=== PATIENT | male | born 1960 | race Caucasian/White ===

== ENCOUNTER 2016-09-08 15:53 | Emergency (ER) | payer OTHER ==
--- NOTE | 2016-09-08 15:58 | ED Physician Chart ---
Chief Complaint/HPI - Patient Information Date Seen:: 09/08/16 Time Seen:: 15:57 Chief Complaint:: cough History of Present Illness:: 55-year-old male history of diabetes mellitus type 2, complains of acute, worsening, constant, worse at night, nonproductive, severe, cough for the past week and a half. Has associated sore throat and low-grade temperature. Allergies:: Allergies Allergy/AdvReac Type Severity Reaction Status Date / Time No Known Allergies Allergy Verified 02/21/16 14:11 Historian:: Patient Review:: Nurse's Note Reviewed Review of Systems - Review of Systems Other: Complete system review otherwise unremarkable except as noted in HPI. Past Medical History - Past Medical History Past Medical History: HTN, DM, Other (CK D stage III) Family History: None Social History: Non Smoker, No Alcohol, No Drug Use, Employed Surgical History: None Psychiatricy History: None Medication: Reviewed Family Medical History - Family Member Mother History Unknown: Yes Physical Exam - Physical Examination Other:: INITIAL VITAL SIGNS: Reviewed by me GENERAL: Alert and interactive. No acute distress HEAD: Head is normocephalic and atraumatic EYES: EOMI. . No scleral icterus. No conjunctival injection ENT: Moist mucous membranes. Posterior pharynx is erythematous. NECK: Supple. No masses. Full range of motion RESPIRATORY: No tachypnea. Prolonged expiratory phase bilaterally with slight expiratory wheeze. Rales, or rhonchi CV: Regular rate and rhythm. No murmurs, rubs, or gallops ABDOMEN: Soft, non-distended, non-tender. No guarding. No rebound. No masses. EXTREMITIES: No deformity. No cyanosis. No edema. SKIN: Warm and dry. No obvious rashes. NEUROLOGIC: Alert and oriented. Face is symmetric. Speech is normal. Moves all extremities equally. Motor and sensory distally intact. Labs/Radiology/EKG Results - Lab Results Results: Lab Results 09/08/16 09/08/16 Range/Units 16:20 16:20 WBC 6.3 (4.8-10.8) Th/cmm RBC 4.59 (4.30-5.70) Mil/cmm Hgb 13.7 (13.2-17.3) gm/dL Hct 40.6 (39.0-49.0) % MCV 88.4 (80-99) fl MCH 29.9 (26.0-30.0) pg MCHC Differential 33.8 (28.0-36.0) pg RDW 12.1 (11.5-20.0) % Plt Count 215 (150-400) Th/cmm MPV 8.4 fl Neutrophils % 67.7 (40.0-80.0) % Lymphocytes % 19.0 L (20.0-50.0) % Monocytes % 9.4 (2.0-10.0) % Eosinophils % 2.8 (0.0-5.0) % Basophils % 1.1 (0.0-2.0) % Sodium 134 L (136-145) mEq/L Potassium 4.7 (3.5-5.1) mEq/L Chloride 106 (98-107) mEq/L Carbon Dioxide 24.9 (21.0-31.0) mEq/L Anion Gap 7.8 (7.0-16.0) BUN 39 H (7-25) mg/dL Creatinine 2.3 H (0.7-1.3) mg/dL Est GFR ( Amer) 38.3 (>90) ml/min Est GFR (Non-Af Amer) 31.7 ml/min BUN/Creatinine Ratio 17.0 Glucose 147 H (70-105) mg/dL Calcium 8.6 (8.6-10.3) mg/dL - Radiology Results Results: Single AP VIEW Portable Chest X-ray was interpreted independently and contemporaneously by Nataliya Pena MD: No cardiomegaly Normal mediastinum No lung infiltrates No pneumothorax No soft tissue or bony abnormalities ED Septic Shock - . Is Septic Shock (SBP<90, OR Lactate>4 mmol\L) present?: No Reassessment (Disposition) - Reassessment Reassessment:: Chest x-ray unremarkable. Labs essentially unremarkable. Patient does have severe cough. Gave antitussive here in the ER. Also gave IM Decadron and Toradol. Patient received DuoNeb breathing treatment. Symptoms greatly improved. Has acute bronchitis. All lab results discussed with patient. Has known CK D stage III. Provided prescriptions for antibiotic given the patient' s age and comorbidities of diabetes. Also gave ibuprofen and antitussive. Follow up PCP 1-2 days. Gave return to ER precautions. Patient understands and agrees the plan. Reassessment Condition:: Improved - Diagnosis Diagnosis:: Acute bronchitis Diabetes mellitus type 2 Hypertension CK D stage III - Aftercare/Follow up Instructions Aftercare/Follow-Up Instructions:: Counseled pt regarding lab results/diagnosis & need follow up, Refer to Discharge Instructions Medication Prescribed:: Azithromycin Ibuprofen Promethazine with codeine antitussive - Patient Disposition Discharge/Transfer:: Home Time:: 16:22 Condition at Disposition:: Improved ED Discharge Plan - Patient Disposition Admit/Discharge/Transfer: PT DISCHARGED HOME Condition at Disposition: Improved Instructions: Bronchitis, [id number] Accepting Physician: Jh Brandt [Other] - 1-3 Days Forms: Work Release Form
[2016-09-08 16:02] VITALS: BP 146/80
[2016-09-08] MEDS ORDERED: Dexamethasone Sodium Phos 4 mg/mL Vial IM STA (16:08)
[2016-09-08] MEDS ORDERED: Codeine/Promethazine Susp 5 mL UDC PO STA (16:08)
[2016-09-08] MEDS ORDERED: Albuterol/Ipratropium Neb 3 ML AERS HHN ONE ×2 (16:08→16:19)
[2016-09-08] MEDS ORDERED: Dexamethasone Sodium Phos 10 mg/mL PF Vial ONE (16:13)
[2016-09-08] MEDS ORDERED: Codeine/Promethazine Susp 5 mL UDC ONE (16:13)
[2016-09-08 16:39] LABS: % BASOPHILS 1.1 % (0.0-2.0); % EOSINOPHILS 2.8 % (0.0-5.0); % MONOCYTES 9.4 % (2.0-10.0); % NEUTROPHILS 67.7 % (40.0-80.0); HEMATOCRIT 40.6 % (39.0-49.0); HEMOGLOBIN 13.7 gm/dL (13.2-17.3); MEAN CELL VOLUME 88.4 fl (80-99); MEAN CORPUSCULAR HEMOGLOBIN 29.9 pg (26.0-30.0); MEAN CORPUSCULAR HGB CONC 33.8 pg (28.0-36.0); MEAN PLATELET VOLUME 8.4 fl; NEUTROPHILE ABSOLUTE 4.2 Th/cmm (1.8-8.0); PLATELET COUNT 215 Th/cmm (150-400); RED BLOOD COUNT 4.59 Mil/cmm (4.30-5.70); RED CELL DISTRIBUTION WIDTH 12.1 % (11.5-20.0); WHITE BLOOD COUNT 6.3 Th/cmm (4.8-10.8)
[2016-09-08 16:56] LABS: ANION GAP 7.8 (7.0-16.0); CALCIUM SERUM 8.6 mg/dL (8.6-10.3); CARBON DIOXIDE 24.9 mEq/L (21.0-31.0); CREATININE - SERUM 2.3 mg/dL (0.7-1.3); POTASSIUM SERUM 4.7 mEq/L (3.5-5.1)
--- NOTE | 2016-09-09 09:11 | Diagnostic Imaging Report ---
CHEST X-RAY: AP view INDICATION: Cough COMPARISON: 02/21/2016 FINDINGS: Mild chronic changes are seen. No focal consolidation or effusions. Heart size is normal. Degenerative changes of the spine are noted. IMPRESSION: Mild chronic lung changes. No focal consolidation identified.
== END 2016-09-08 17:15 | disposition home or self-care (01) ==
LOC: ER 15:53
DX: J20.9 Acute bronchitis, unspecified (principal); E11.22 Type 2 diabetes mellitus with diabetic chronic kidney disease; I12.9 Hypertensive chronic kidney disease with stage 1 through stage 4 chronic kidney disease, or unspecified chronic kidney disease; N18.3 Chronic kidney disease, stage 3 (moderate)
CPT/HCPCS: 99285; 96372 ×2; 94640; 71010; 36415; 85025; 80048; J1885